=== PATIENT | male | born 1995 | race Caucasian/White ===

== ENCOUNTER 2017-09-08 00:55 | Emergency (ER) | payer OTHER, SELFPAY ==
[2017-09-08 01:02] VITALS: BP 144/90; PULSE 107; RESP 15; TEMP 36.8; O2SAT 100; BMI 33.3
--- NOTE | 2017-09-08 01:03 | ED.HA ---
HPI - Headache General Chief Complaint: Headache Stated Complaint: HAS HEADACHE, COLLAPSED Time Seen by Provider: 09/08/17 01:01 Source: patient and RN notes reviewed Mode of arrival: ambulatory Limitations: no limitations History of Present Illness HPI Narrative: Patient is a 22-year-old male who presents with sudden worsening severe headache. He was having intercourse with his when his headache got very intense. He says his feet feel funny he is very anxious is breathing fast. No focal deficits. He does have headaches but not like this. A fever chills no neck pain. MD Complaint: headache Onset (ago): minute(s) Onset description: sudden Location: frontal Relieving factors: nothing Exacerbating factors: none Related Data Home Medications Medication Instructions Recorded Confirmed No Known Home Medications 09/08/17 09/08/17 Allergies Allergy/AdvReac Type Severity Reaction Status Date / Time No Known Drug Allergies Allergy Verified 09/08/17 01:07 Review of Systems Review of Systems All systems reviewed & are unremarkable except as noted in HPI and below Constitutional Denies chills, Denies fever(s), Reports headache(s), Denies lethargy and Denies weakness Eyes Denies change in vision, Denies eye discharge, Denies irritation and Denies loss of vision ENT Ears, Nose, Mouth, and Throat: Reports headache(s) and Denies neck pain Cardiovascular Denies chest pain, Denies irregular heart rhythm, Denies lightheadedness, Denies palpitations, Denies dyspnea, Denies dyspnea on exertion and Denies orthopnea Respiratory Denies cough, Denies dyspnea, Denies dyspnea on exertion and Denies wheezing Gastrointestinal Gastrointestinal: Denies abdominal pain, Denies change in bowel habits, Denies diarrhea, Denies nausea and Denies vomiting Musculoskeletal Denies neck pain Neurologic Reports system reviewed and no additional complaints, except as docu, Reports as per HPI, Reports headache(s), Denies loss of vision and Denies weakness Endocrine Denies palpitations Allergic/Immunologic Denies wheezing Exam Const General: acute distress (In pain) HENMT Head: normocephalic and atraumatic Ears: external ears normal and TM's normal bilaterally Nose: external nose normal and No nasal discharge Face and sinus: sinuses nontender, face symmetric, no sinus tenderness and No dry mucous membranes Mouth: oral mucosae normal and moist mucous membranes Teeth and gingiva: dentition normal Throat: tonsils normal and uvula midline Neck Neck: normal visual inspection, no meningeal signs, trachea midline and No midline deformity Resp Effort & Inspection: normal respiratory effort, able to speak in complete sentences, no respiratory distress, tachypneic and no use of accessory muscles Auscultation: clear to auscultation bilaterally, no rales, no rhonchi and no wheezes Cardio Rate: regular rate Rhythm: regular rhythm Heart Sounds: no click, no gallops, no murmurs and no rubs Pulses: normal peripheral pulses GI Inspection: non-distended Palpation: soft, no hepatosplenomegaly, No guarding, No pulsatile mass and No tender Auscultation: normal bowel sounds Neuro General: alert, oriented x3, gait normal and no focal motor deficits Cranial Nerves: CN's II-XI intact bilaterally Speech: speech normal Motor: strength 5/5 throughout Sensory Exam: no sensory deficits noted MDM - Headache MDM Narrative Medical decision making narrative: The patient headache improved significantly with headache cocktail. He has no focal deficits. He feels ready and able to go home. Differential Diagnosis Differential diagnosis: Likely migraine, subarachnoid hemorrhage, headache and meningitis Course Orders Ordered: Discontinued Medications Diphenhydramine HCl (Benadryl) 25 mg IV NOW ONE Stop: 09/08/17 01:08 Last Admin: 09/08/17 01:14 Dose: 25 mg Sodium Chloride (Normal Saline 0.9%) 1,000 mls @ 1,000 mls/hr IV BOLUS ONE Stop: 09/08/17 02:06 Last Admin: 09/08/17 01:14 Dose: 1,000 mls/hr Ketorolac Tromethamine (Toradol) 30 mg IV NOW ONE Stop: 09/08/17 01:08 Last Admin: 09/08/17 01:14 Dose: 30 mg Metoclopramide HCl (Reglan) 10 mg IV NOW ONE Stop: 09/08/17 01:08 Last Admin: 09/08/17 01:14 Dose: 10 mg Reevaluation(s) Reevaluation #1: Sleeping easily arousable pain much better. Time: 02:05 Last Vital Signs Temp 98.2 F 09/08/17 01:02 Pulse 85 09/08/17 02:21 Resp 17 09/08/17 02:21 BP 112/70 09/08/17 02:21 Pulse Ox 98 09/08/17 02:21 Discharge Plan Departure Patient Disposition: Home, Self-Care Clinical Impression: Headache Discharge Date/Time: 09/08/17 02:29 Interventions: ED Discharge Assessment Last Done: 09/08/17 02:28 Instructions: Sexual Headaches: From Ecstasy to Agony Activity Restrictions/Additional Instructions: *You have been diagnosed with headache *Take medications as directed *Follow up with your primary care provider in 2-3 days *Return to ER if you should have increasing headache, persistent vomiting or any new, worsening or concerning symptoms Prescriptions: No Action No Known Home Medications RF: 0
[2017-09-08] MEDS: SODIUM CHLORIDE 0.9% 1,000 ML 1000 ML IV (01:14)
[2017-09-08] MEDS: diphenhydrAMINE 50 MG/ML VIAL 25 MG IV (01:14)
[2017-09-08] MEDS: METOCLOPRAMIDE 10 MG/2 ML INJ IV (01:14)
[2017-09-08] MEDS: KETOROLAC 60 MG/2 ML VIAL 30 MG IV (01:14)
[2017-09-08 01:28] VITALS: BP 144/90; PULSE 96; RESP 17
[2017-09-08 01:40] VITALS: BP 121/84; PULSE 81; RESP 15; O2SAT 96
[2017-09-08 02:21] VITALS: BP 112/70; PULSE 85; RESP 17; O2SAT 98
== END 2017-09-08 02:29 | disposition home or self-care (01) ==
PROVIDERS: Emergency Provider Emergency Medicine
DX: R51 Headache (principal)
CPT/HCPCS: 36591; 99283; J1200; J1885; J2765

== ENCOUNTER 2017-09-08 20:15 | Emergency (ER) | payer OTHER, SELFPAY ==
[2017-09-08 20:22] VITALS: BP 109/69; PULSE 104; RESP 18; TEMP 38.8; O2SAT 99; BMI 33.3
--- NOTE | 2017-09-08 20:24 | ED_ITS ---
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 He also states that everything is ?spinning? today, he feels like the room is spinning around him. These symptoms were first noted when he got up this a.m. He states that this dizziness is worse when he is up and moving, better at rest. He states that he also woke up feeling weak this morning, felt a little bit better after he ate breakfast, so went to work but then has felt progressively worse throughout the afternoon and was told to come here. He states that he has not been able to keep down any fluids or food this afternoon, has vomited 6 times since late afternoon. He states that he has had some ongoing sinus pressure, but no headache like he had when here earlier this morning. He states he does feel like he gets some headache only when vomiting. He states that prior to all of the symptoms he has had some cough and occasional sensation of air hunger. He denies any chest pain or wheeze. He denies any new pain or swelling in the extremities. [place] the last 5 weeks and flown twice including return home Friday. 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 He denies any urinary symptoms. He denies any diarrhea but feels like his stomach is ?rumbling?. He had a normal bowel movement yesterday Related Data Home Medications Medication Instructions Recorded Confirmed No Known Home Medications 09/08/17 09/08/17 Allergies Allergy/AdvReac Type Severity Reaction Status Date / Time No Known Drug Allergies Allergy Verified 09/08/17 01:07 Review of Systems <Mariangel Lazcano PA-C - Last Filed: 09/08/17 22:31> Review of Systems All systems reviewed & are unremarkable except as noted in HPI and below <Madelyn Lutz DO - Last Filed: 09/08/17 23:05> Constitutional Reports headache(s) (last night, see hpi) ENT Ears, Nose, Mouth, and Throat: Reports dizziness (light headed) and Reports headache(s) (last night, see hpi) Cardiovascular Denies syncope and Reports lightheadedness Comments: Gastrointestinal Gastrointestinal: Denies abdominal pain, Denies diarrhea, Reports nausea and Reports vomiting Neurologic Reports dizziness (light headed), Denies syncope and Reports headache(s) (last night, see hpi) Exam <Mariangel Lazcano PA-C - Last Filed: 09/08/17 22:31> Narrative Exam Narrative: GENERAL APPEARANCE: Patient sitting comfortably, in no distress. HEENT: PERRL, EOMI, No nystagmus,normal TMs and oropharynx, no sinus TTP NECK: Supple, no masses or lymphadenopathy LUNGS: Clear to auscultation bilaterally. HEART: Rate and rhythm regular, rapid, without murmur, normal S1 and S2, no S3 or S4. ABDOMEN: Soft, ND, + BS x 4 quadrants, mild midline tenderness without guarding or rebound EXTREMITIES: No edema or calf TTP DERM: No exanthem NEUROLOGIC: Alert and oriented, normal speech, gait and coordination. I am able to elicit vertigo with Hallpike maneuver MUSCULOSKELETAL: Full Csp AROM, mild cervical and paraspinal musculature tenderness <Madelyn Lutz DO - Last Filed: 09/08/17 23:05> Const General: cooperative and healthy appearing HENPA Head: normal to inspection and normocephalic Neck Neck: normal visual inspection, full ROM and no meningeal signs Other: easily moves neck MDM - Fever <Mariangel Lazcano PA-C - Last Filed: 09/08/17 22:31> Lab Data Result diagrams: 09/08/17 20:25 09/08/17 20:25 Lab Results 09/08/17 09/08/17 09/08/17 Range/Units 20:25 20:25 20:25 WBC 5.6 (4.5-11.0) X10^3/uL RBC 4.91 (4.5-5.9) X10^6/uL Hgb 14.8 (13.5-17.5) g/dL Hct 43.2 (41-53) % MCV 87.9 (80-100) fL MCH 30.2 (26-34) PG MCHC 34.4 (30-36) % RDW 13.4 (11.6-14.8) % Plt Count 154 (150-400) X10^3/uL Neut % (Auto) 79.4 H (50-75) % Lymph % (Auto) 6.7 L (25-40) % [place] % (Auto) 12.3 (3-14) % Eos % (Auto) 1.4 L (2-4) % Baso % (Auto) 0.2 (0-2) % Neut # (Auto) 4400 (6256-3180) /uL D-Dimer (<231) ng/mL Sodium (137-145) mmol/L Potassium (3.4-5.1) mmol/L Chloride (98-107) mmol/L Carbon Dioxide (22-32) mmol/L BUN (9-20) mg/dL Creatinine (0.66-1.25) mg/dL Estimated GFR (>60) mL/min BUN/Creatinine Ratio (6-22) Glucose (70-100) mg/dL Lactate 1.3 (0.7-2.1) mmol/L Calcium (8.4-10.2) mg/dL Total Bilirubin (0.2-1.3) mg/dL AST (17-59) IU/L ALT (21-72) IU/L Alkaline Phosphatase (38-126) U/L Total Protein (6.3-8.2) g/dL Albumin (3.5-5.0) g/dL Globulin (1.7-4.1) g/dL Albumin/Globulin Ratio (1.0-2.8) Procalcitonin < 0.05 (<0.5) ng/mL Influenza A & B (PCR) (Negative) 09/08/17 09/08/17 09/08/17 Range/Units 20:25 20:25 21:20 WBC (4.5-11.0) X10^3/uL RBC (4.5-5.9) X10^6/uL Hgb (13.5-17.5) g/dL Hct (41-53) % MCV (80-100) fL MCH (26-34) PG MCHC (30-36) % RDW (11.6-14.8) % Plt Count (150-400) X10^3/uL Neut % (Auto) (50-75) % Lymph % (Auto) (25-40) % [place] % (Auto) (3-14) % Eos % (Auto) (2-4) % Baso % (Auto) (0-2) % Neut # (Auto) (2141-1107) /uL D-Dimer < 200 (<231) ng/mL Sodium 142 (137-145) mmol/L Potassium 3.7 (3.4-5.1) mmol/L Chloride 102.0 (98-107) mmol/L Carbon Dioxide 28.0 (22-32) mmol/L BUN 12.0 (9-20) mg/dL Creatinine 1.10 (0.66-1.25) mg/dL Estimated GFR > 60.0 (>60) mL/min BUN/Creatinine Ratio 10.9 (6-22) Glucose 91 (70-100) mg/dL Lactate (0.7-2.1) mmol/L Calcium 9.8 (8.4-10.2) mg/dL Total Bilirubin 0.4 (0.2-1.3) mg/dL AST 33 (17-59) IU/L ALT 53 (21-72) IU/L Alkaline Phosphatase 60 (38-126) U/L Total Protein 7.6 (6.3-8.2) g/dL Albumin 4.6 (3.5-5.0) g/dL Globulin 3.0 (1.7-4.1) g/dL Albumin/Globulin Ratio 1.5 (1.0-2.8) Procalcitonin (<0.5) ng/mL Influenza A & B (PCR) Negative (Negative) Imaging Data Chest x-ray: Radiologist's impression: [address] [address] XRay Report Signed Patient: Shawn Pederson MR#: [id number] : 1995 Acct:[id number] Age/Sex: 22 / M Date of Service: 09/08/17 Loc: ED Accession Number: [id number] Procedure: XR chest 2V Ordering Provider: Mariangel Lazcano P.A-C PROCEDURE: XR CHEST 2V INDICATIONS: cough, shortness of breath TECHNIQUE: 2 views of the chest were acquired. COMPARISON: None. FINDINGS: Surgical changes and devices: None. Lungs and pleura: No pleural effusions or pneumothorax. Lungs are clear. Mediastinum: Mediastinal contours are normal. Heart size is normal. Bones and chest wall: No suspicious bony abnormalities. Soft tissues appear unremarkable. IMPRESSION: No acute cardiopulmonary disease process. Dictated by: Alyssa Fitch MD, PhD on 09/08/2017 at 21:23 Approved by: Alyssa Fitch MD, PhD on 09/08/2017 at 21:24 <Madelyn Lutz, DO - Last Filed: 09/08/17 23:05> [facility] Narrative Medical decision making narrative: I discussed case with Mariangel. Patient's headache resolved completely between last night and today. He has overall body aches feeling a little lightheaded but no syncopal episodes. He he vomited a few times abdominal pain did start after he vomiting. He is now tolerating oral fluids. Looks and feels better. At this time likely a viral syndrome. Do not suspect meningitis at this time. Differential Diagnosis Likely fever of unknown origin, gastroenteritis, viral infection and sepsis Lab Data Attestation: I reviewed the patient's lab results. Lab Results 09/08/17 09/08/17 09/08/17 Range/Units 20:25 20:25 20:25 WBC 5.6 (4.5-11.0) X10^3/uL RBC 4.91 (4.5-5.9) X10^6/uL Hgb 14.8 (13.5-17.5) g/dL Hct 43.2 (41-53) % MCV 87.9 (80-100) fL MCH 30.2 (26-34) PG MCHC 34.4 (30-36) % RDW 13.4 (11.6-14.8) % Plt Count 154 (150-400) X10^3/uL Neut % (Auto) 79.4 H (50-75) % Lymph % (Auto) 6.7 L (25-40) % [place]ville % (Auto) 12.3 (3-14) % Eos % (Auto) 1.4 L (2-4) % Baso % (Auto) 0.2 (0-2) % Neut # (Auto) 4400 (5412-2835) /uL D-Dimer (<231) ng/mL Sodium (137-145) mmol/L Potassium (3.4-5.1) mmol/L Chloride (98-107) mmol/L Carbon Dioxide (22-32) mmol/L BUN (9-20) mg/dL Creatinine (0.66-1.25) mg/dL Estimated GFR (>60) mL/min BUN/Creatinine Ratio (6-22) Glucose (70-100) mg/dL Lactate 1.3 (0.7-2.1) mmol/L Calcium (8.4-10.2) mg/dL Total Bilirubin (0.2-1.3) mg/dL AST (17-59) IU/L ALT (21-72) IU/L Alkaline Phosphatase (38-126) U/L Total Protein (6.3-8.2) g/dL Albumin (3.5-5.0) g/dL Globulin (1.7-4.1) g/dL Albumin/Globulin Ratio (1.0-2.8) Procalcitonin < 0.05 (<0.5) ng/mL Influenza A & B (PCR) (Negative) 09/08/17 09/08/17 09/08/17 Range/Units 20:25 20:25 21:20 WBC (4.5-11.0) X10^3/uL RBC (4.5-5.9) X10^6/uL Hgb (13.5-17.5) g/dL Hct (41-53) % MCV (80-100) fL MCH (26-34) PG MCHC (30-36) % RDW (11.6-14.8) % Plt Count (150-400) X10^3/uL Neut % (Auto) (50-75) % Lymph % (Auto) (25-40) % Granville % (Auto) (3-14) % Eos % (Auto) (2-4) % Baso % (Auto) (0-2) % Neut # (Auto) (3186-4622) /uL D-Dimer < 200 (<231) ng/mL Sodium 142 (137-145) mmol/L Potassium 3.7 (3.4-5.1) mmol/L Chloride 102.0 (98-107) mmol/L Carbon Dioxide 28.0 (22-32) mmol/L BUN 12.0 (9-20) mg/dL Creatinine 1.10 (0.66-1.25) mg/dL Estimated GFR > 60.0 (>60) mL/min BUN/Creatinine Ratio 10.9 (6-22) Glucose 91 (70-100) mg/dL Lactate (0.7-2.1) mmol/L Calcium 9.8 (8.4-10.2) mg/dL Total Bilirubin 0.4 (0.2-1.3) mg/dL AST 33 (17-59) IU/L ALT 53 (21-72) IU/L Alkaline Phosphatase 60 (38-126) U/L Total Protein 7.6 (6.3-8.2) g/dL Albumin 4.6 (3.5-5.0) g/dL Globulin 3.0 (1.7-4.1) g/dL Albumin/Globulin Ratio 1.5 (1.0-2.8) Procalcitonin (<0.5) ng/mL Influenza A & B (PCR) Negative (Negative) Course <Mariangel Lazcano PA-C - Last Filed: 09/08/17 22:31> Hospital Course: Patient reports resolution of nausea, not having pain, still feeling weak. He was tolerating oral fluid and ate some crackers prior to my departure. He has not been able to leave a urine sample yet but will do so when able. Labs and findings were reviewed. Discussed plan to send him home if he continues to improve. Rolanda shen ordered. Signed out to Dr. Lutz at 2220 Orders Ordered: ED Orders 09/08/17 20:25 Complete Blood Count AUTO DIFF Stat Comprehensive Metabolic Panel Stat D Dimer Stat Lactate (Lactic Acid) Stat Procalcitonin Stat 09/08/17 20:52 XR chest 2V Stat 09/08/17 21:20 Influenza A and B by PCR Rapid Stat 09/08/17 22:25 Blood Culture Stat Discontinued Medications Sodium Chloride (Normal Saline 0.9%) 1,000 mls @ 1,000 mls/hr IV BOLUS ONE Stop: 09/08/17 21:55 Last Infusion: 09/08/17 22:38 Dose: 0 mls/hr Admin: 09/08/17 21:05 Dose: 1,000 mls/hr Ketorolac Tromethamine (Toradol) 30 mg IV NOW ONE Stop: 09/08/17 20:53 Last Admin: 09/08/17 21:04 Dose: 30 mg Ondansetron HCl (Zofran) 4 mg IV NOW ONE Stop: 09/08/17 20:57 Last Admin: 09/08/17 21:04 Dose: 4 mg Ondansetron HCl (Zofran Odt Prepack) 1 bottle MISC SEEINSTR ONE Stop: 09/08/17 22:18 Last Vital Signs Temp 100.6 F H 09/08/17 22:03 Pulse 96 H 09/08/17 21:20 Resp 15 09/08/17 21:20 BP 99/56 L 09/08/17 21:20 Pulse Ox 98 09/08/17 21:20 <Madelyn Lutz DO - Last Filed: 09/08/17 23:05> Orders Ordered: ED Orders 09/08/17 20:25 Complete Blood Count AUTO DIFF Stat Comprehensive Metabolic Panel Stat D Dimer Stat Lactate (Lactic Acid) Stat Procalcitonin Stat 09/08/17 20:52 XR chest 2V Stat 09/08/17 21:20 Influenza A and B by PCR Rapid Stat 09/08/17 22:25 Blood Culture Stat Discontinued Medications Sodium Chloride (Normal Saline 0.9%) 1,000 mls @ 1,000 mls/hr IV BOLUS ONE Stop: 09/08/17 21:55 Last Infusion: 09/08/17 22:38 Dose: 0 mls/hr Admin: 09/08/17 21:05 Dose: 1,000 mls/hr Ketorolac Tromethamine (Toradol) 30 mg IV NOW ONE Stop: 09/08/17 20:53 Last Admin: 09/08/17 21:04 Dose: 30 mg Ondansetron HCl (Zofran) 4 mg IV NOW ONE Stop: 09/08/17 20:57 Last Admin: 09/08/17 21:04 Dose: 4 mg Ondansetron HCl (Zofran Odt Prepack) 1 bottle MISC SEEINSTR ONE Stop: 09/08/17 22:18 Last Vital Signs Temp 100.6 F H 09/08/17 22:03 Pulse 96 H 09/08/17 21:20 Resp 15 09/08/17 21:20 BP 99/56 L 09/08/17 21:20 Pulse Ox 98 09/08/17 21:20 Discharge Plan Departure Patient Disposition: Home, Self-Care Clinical Impression: Gastroenteritis, Dehydration, Vertigo Instructions: DI for Viral Gastroenteritis -- Adult, DI for Benign Paroxysmal Positional Vertigo, Gastroenteritis Diet Activity Restrictions/Additional Instructions: You should return if you have any acutely worsening symptoms. You should continue lots of clear fluids and you can try broth, and bland foods such as saltines, white rice, applesauce, bananas as tolerated. You should rest and remain off of work tomorrow and follow up with your PCP in the next day or so if your symptoms are not continuing to improve. Use OTC Ibuprofen every 8 hours or Aleve every 12 hours and add Tylenol as needed for fever. You can use the pills we gave you for nausea tonight and tomorrow if needed and you should see your PCM if you need more. Prescriptions: No Action No Known Home Medications RF: 0 Referrals: [facility] [Provider Group] Sign Out <Mariangel Lazcano PA-C - Last Filed: 09/08/17 22:31> Sign out: Patient reported nausea resolved, not having significant pain, still feeling weak. He is still receiving IV fluid and is now tolerating oral fluid and ate saltines. He has not been able to leave a urine sample but will do when able. Advised of plan to d/c home if he continues to improve. Signed out to Dr. Lutz at 2230 <Madelyn Lutz DO - Last Filed: 09/08/17 23:05> Cosign ED Attending Cosignature Attestation: I was immediately available in the department for consultation. Documentation has been reviewed. I agree with assessment and plan. Sign Out Provider Sign Out Attestation: Patient seen evaluated by myself. Please see chart for further details.
[2017-09-08 20:49] VITALS: TEMP 39.2
--- NOTE | 2017-09-08 20:52 | DI.RAD.S_ITS ---
PROCEDURE: XR CHEST 2V INDICATIONS: cough, shortness of breath TECHNIQUE: 2 views of the chest were acquired. COMPARISON: None. FINDINGS: Surgical changes and devices: None. Lungs and pleura: No pleural effusions or pneumothorax. Lungs are clear. Mediastinum: Mediastinal contours are normal. Heart size is normal. Bones and chest wall: No suspicious bony abnormalities. Soft tissues appear unremarkable. IMPRESSION: No acute cardiopulmonary disease process. Dictated by: Alyssa Fitch MD, PhD on 09/08/2017 at 21:23 Approved by: Alyssa Fitch MD, PhD on 09/08/2017 at 21:24
[2017-09-08 21:04] VITALS: TEMP 39.2
[2017-09-08 21:04] LABS: Add Manual Diff / Slide Review NO; Basophils Percent Auto 0.2 % (0-2); Eosinophils Percent Auto 1.4 % (2-4); Hematocrit 43.2 % (41-53); Hemoglobin 14.8 g/dL (13.5-17.5); Lymphocytes Percent Auto 6.7 % (25-40); Mean Corpuscular HGB Conc 34.4 % (30-36); Mean Corpuscular Hemoglobin 30.2 PG (26-34); Mean Corpuscular Volume 87.9 fL (80-100); Monocytes Percent Auto 12.3 % (3-14); Neutrophils Absolute Auto 4400 /uL (3000-5900); Neutrophils Percent Auto 79.4 % (50-75); Platelet Count 154 X10^3/uL (150-400); Red Blood Cell Count 4.91 X10^6/uL (4.5-5.9); Red Cell Distribution Width 13.4 % (11.6-14.8); White Blood Cell Count 5.6 X10^3/uL (4.5-11.0)
[2017-09-08] MEDS: KETOROLAC 60 MG/2 ML VIAL 30 MG IV (21:04)
[2017-09-08] MEDS: ONDANSETRON 4 MG/2 ML INJ IV (21:04)
[2017-09-08] MEDS: SODIUM CHLORIDE 0.9% 1,000 ML 1000 ML IV (21:05)
[2017-09-08 21:09] LABS: D Dimer < 200 ng/mL (<231)
[2017-09-08 21:20] VITALS: BP 99/56; PULSE 96; RESP 15; O2SAT 98
[2017-09-08 21:21] LABS: Lactate (Lactic Acid) 1.3 mmol/L (0.7-2.1)
[2017-09-08 21:24] LABS: Alanine Aminotransferase 53 IU/L (21-72); Albumin 4.6 g/dL (3.5-5.0); Albumin Globulin Ratio 1.5 (1.0-2.8); Alkaline Phosphatase 60 U/L (38-126); Aspartate Aminotransferase 33 IU/L (17-59); BUN Creatinine Ratio 10.9 (6-22); Bilirubin Total 0.4 mg/dL (0.2-1.3); Calcium 9.8 mg/dL (8.4-10.2); Estimated Glomerular Filt Rate > 60.0 mL/min (>60); Glucose 91 mg/dL (70-100); HEMOLYSIS 20 (0-50); Potassium 3.7 mmol/L (3.4-5.1); Sodium 142 mmol/L (137-145); Total Protein 7.6 g/dL (6.3-8.2)
[2017-09-08 21:40] LABS: Procalcitonin < 0.05 ng/mL (<0.5)
[2017-09-08 21:44] LABS: Influenza A and B by PCR Rapid Negative (Negative)
[2017-09-08 22:03] VITALS: TEMP 38.1
[2017-09-08] MEDS: ONDANSETRON 4 MG ODT PREPACK 1 BOTTLE MISC (23:05)
[2017-09-08 23:08] VITALS: BP 114/76; PULSE 77; RESP 16; TEMP 37.5; O2SAT 99
== END 2017-09-08 23:09 | disposition home or self-care (01) ==
PROVIDERS: Emergency Provider Internal Medicine
DX: K52.9 Noninfective gastroenteritis and colitis, unspecified (principal); E86.0 Dehydration; R42 Dizziness and giddiness
CPT/HCPCS: 36591; 71046; 80053; 81003; 83605; 84145; 85025; 85379; 87040; 87400; 96361; 96374; 96375; 96376; 99283; 99284; J1200; J1885; J2405; J2765

== ENCOUNTER 2020-07-29 17:12 | Emergency (ER) | payer OTHER, SELFPAY ==
[2020-07-29 17:21] VITALS: BP 155/64; PULSE 104; RESP 16; TEMP 36.8; O2SAT 97; BMI 41.2
--- NOTE | 2020-07-29 17:24 | DI.RAD.S_ITS ---
PROCEDURE: XR ANKLE RT MIN 3V INDICATIONS: sprained weeks ago with increasing pain TECHNIQUE: 3 views of the ankle were acquired. COMPARISON: None. FINDINGS: Bones: No fractures or dislocations. Ankle mortise is normally aligned. No suspicious bony lesions. Soft tissues: No tibiotalar joint effusion. Normal Achilles tendon thickness. Achilles insertional enthesopathy onto the calcaneus. IMPRESSION: No acute bony abnormality. Dictated by: Agus Arrington M.D. on 07/29/2020 at 17:02 Approved by: Agus Arrington M.D. on 07/29/2020 at 17:03
--- NOTE | 2020-07-29 18:18 | ED.LOWEXIN ---
HPI - Extremity Injury (Lower) General Chief Complaint: Extremity Injury, Lower Stated Complaint: rolled ankle 2wks ago, swollen, bruised, pain Time Seen by Provider: 07/29/20 17:54 Source: patient and family Mode of arrival: Ambulatory Limitations: no limitations History of Present Illness HPI Narrative: 25-year-old male nonsmoker with noncontributory medical history presents with his and young child a chief complaint ongoing pain and swelling in his right ankle. He states that he stood up to let the dogs out 2 weeks ago and inverted his right ankle and has felt pain with ambulation ever since. He has some little in terms of any medications and has been wearing a lace-up brace and using crutches. He states the pain is worse with motion and improves with rest. He denies any knee or hip pain. He denies any numbness, tingling or weakness. He denies any significant history of ankle injuries. MD complaint: ankle injury Onset (ago): week(s) Type of Injury: inversion Place: home Severity: moderate Relieving factors: immobilization and rest Exacerbating factors: weight bearing and movement Context: walking Associated symptoms: swelling and able to partially bear weight Other symptoms: none Treatments prior to arrival: splint Related Data Home Medications Medication Instructions Recorded Confirmed No Known Home Medications 09/08/17 09/08/17 Allergies Allergy/AdvReac Type Severity Reaction Status Date / Time No Known Drug Allergies Allergy Verified 09/08/17 01:07 Review of Systems Constitutional Constitutional: Denies chills, Denies fatigue, Denies fever(s), Denies frequent falls, Denies lethargy and Denies weakness Eyes Eyes: Denies change in vision, Denies eye discharge, Denies irritation and Denies loss of vision ENT Ears, Nose, Mouth, and Throat: Denies change in voice, Denies dizziness, Denies neck pain, Denies sore throat and Denies throat swelling Cardiovascular Cardiovascular: Denies chest pain, Denies irregular heart rhythm, Denies lightheadedness, Denies palpitations, Denies dyspnea, Denies dyspnea on exertion and Denies orthopnea Respiratory Respiratory: Denies cough, Denies dyspnea, Denies dyspnea on exertion and Denies wheezing Gastrointestinal Gastrointestinal: Denies abdominal pain, Denies change in bowel habits, Denies diarrhea, Denies nausea and Denies vomiting Musculoskeletal Musculoskeletal: Denies neck pain and Denies numbness Integumentary/Breasts Skin/Breast: Denies pruritus, Denies erythema, Denies rash and Denies wounds Neurologic Neurologic: Denies behavioral changes, Denies confusion, Denies dizziness, Denies frequent falls, Denies loss of vision, Denies numbness and Denies weakness Psychiatric Psychiatric: Denies anxiety, Denies behavioral changes, Denies confusion, Denies depression, Denies homicidal ideation and Denies suicidal ideation Endocrine Endocrine: Denies fatigue, Denies flushing and Denies palpitations Hematologic/Lymphatic Hematologic/Lymphatic: Denies easy bruising Allergic/Immunologic Allergic/Immunologic: Denies urticaria, Denies throat swelling and Denies wheezing Patient History Medical History (Updated 07/29/20 @ 18:25 by Jose Angel Hoover DO) Healthy adult male Surgical History (Updated 09/08/17 @ 21:15 by Mariangel Lazcano PA-C) [place] teeth extracted Social History (Updated 09/08/17 @ 21:14 by Mariangel Lazcano PA-C) Smoking Status: Never smoker alcohol intake: current substance use type: does not use Smoking Status: Never smoker alcohol intake frequency: holidays/special occasions only Exam Narrative Exam Narrative: GEN: AOx3 and in mild distress EYES: Pupils are equal, round, and reactive to light and accommodation. Extraoccular muscles are intact bilaterally. There is no subconjunctival hemorrhage or exudate. CHEST: Lungs are clear to auscultation bilaterally and free of wheezes, rales, or rhonchi. Heart rate is regular rhythm, there are no murmurs, clicks, rubs, or gallops. There is no chest wall tenderness. ABD: Abdomen is soft and nontender. There is no guarding or rebound. Bowel sounds are normal in all 4 quadrants. There is no mass or organomegaly. EXT: Full, but painful ROM of left ankle with minimal swelling and tenderness of lateral malleolus in distribution of ATF. No obvious deformity or ligamentous instability. SKIN: Warm, pink, and dry. No erythema or rash Initial Vital Signs Initial Vital Signs: Vital Signs Temperature 98.3 F 07/29/20 17:21 Pulse Rate 104 H 07/29/20 17:21 Respiratory Rate 16 07/29/20 17:21 Blood Pressure 155/64 H 07/29/20 17:21 Pulse Oximetry 97 07/29/20 17:21 Course Orders Ordered: ED Orders 07/29/20 17:24 XR ankle RT min 3V Stat Vital Signs Vital signs: Vital Signs - 8 hr 07/29/20 17:21 Temperature 98.3 F Pulse Rate 104 H Respiratory Rate 16 Blood Pressure 155/64 H Pulse Oximetry 97 MDM - Extremity Injury (Lower) Imaging Data Extremity x-ray #1: Radiologist's Impression: [address] [id number] ReportSigned Patient: Shawn Pederson#: [id number]: 1995Acct:[id number]/Sex: 25 / MDate of Service: 07/29/20Loc: EDAccession Number: [id number] Procedure: XR ankle RT min 3V Ordering Provider: Madelyn Lutz D.O. PROCEDURE: XR ANKLE RT MIN 3V INDICATIONS: sprained weeks ago with increasing pain TECHNIQUE: 3 views of the ankle were acquired. COMPARISON: None. FINDINGS: Bones: No fractures or dislocations. Ankle mortise is normally aligned. No suspicious bony lesions. Soft tissues: No tibiotalar joint effusion. Normal Achilles tendon thickness. Achilles insertional enthesopathy onto the calcaneus. IMPRESSION: No acute bony abnormality. Dictated by: Agus Arrington M.D. on 07/29/2020 at 17:02 Approved by: Agus Arrington M.D. on 07/29/2020 at 17:03 Discharge Plan Departure Patient Disposition: Home Clinical Impression: Ankle sprain and strain Instructions: DI for Ankle Sprain Activity Restrictions/Additional Instructions: *You have been diagnosed with [right ankle sprain and strain. Your exam is most consistent with soft tissue injury. X-ray does not show any fracture or dislocation.] *What to do: *Take medications as directed *Follow up with your primary care provider in 2-3 days, call for an appointment. Let them know you were seen in the Emergency Department and that we ask that you be seen in follow up, given your ongoing pain they will most likely refer you to either physical therapy or potentially get an outpatient MRI. *Return to ER if you should have any new, worsening or concerning symptoms Prescriptions: No Action No Known Home Medications RF: 0
[2020-07-29 18:35] VITALS: PULSE 98; RESP 16; O2SAT 97
== END 2020-07-29 18:36 | disposition home or self-care (01) ==
PROVIDERS: Emergency Provider Emergency Medicine
DX: S93.401A Sprain of unspecified ligament of right ankle, initial encounter (principal); S96.911A Strain of unspecified muscle and tendon at ankle and foot level, right foot, initial encounter; W01.0XXA Fall on same level from slipping, tripping and stumbling without subsequent striking against object, initial encounter
CPT/HCPCS: 73610; 99283

== ENCOUNTER 2020-10-14 16:53 | Emergency (ER) | payer OTHER, SELFPAY ==
[2020-10-14 17:12] VITALS: BP 123/85; PULSE 74; RESP 20; TEMP 36.9; O2SAT 99; BMI 41.8
--- NOTE | 2020-10-14 18:52 | ED_ITS ---
HPI - Recheck/Abnormal Lab/Rx General Chief Complaint: Recheck/Abnormal Lab/Rx Stated Complaint: Airline lost medication Time Seen by Provider: 10/14/20 18:49 Source: patient Mode of arrival: Family Vehicle Limitations: no limitations History of Present Illness HPI narrative: Patient is a 25-year-old male who presents with need for medication. He takes Wellbutrin and Lexapro for depression anxiety unfortunately he just got back from a trip and the airlines lost his luggage his medication is in there and he just needs a dose for 10 night. Him he should get his luggage tomorrow. He denies any thoughts of self harm. MD complaint: medication refill request Related Data Home Medications Medication Instructions Recorded Confirmed No Known Home Medications 09/08/17 09/08/17 Allergies Allergy/AdvReac Type Severity Reaction Status Date / Time No Known Drug Allergies Allergy Verified 10/14/20 17:12 Review of Systems Review of Systems Narrative: GENERAL: Denies chills, fatigue, malaise, fever, sweats, travel HEENT: Denies sinus pain, ear pain, sore throat, difficulty swallowing, neck pain RESPIRATORY: Denies dyspnea, cough, wheezing, hemoptysis, sputum. CARDIOVASCULAR: Denies chest pain, palpitations, orthopnea, edema GASTROINTESTINAL: Denies nausea, vomiting, abdominal pain, diarrhea, constipation, melena. : Denies dysuria, frequency, incontinence, hematuria, urinary retention, flank pain. MUSCULOSKELETAL: Denies weakness, joint pain, or bony pain SKIN: No rash, no erythema, no pruritus NEUROLOGIC: Denies weakness, dizziness, headache, numbness, change in speech, confusion PSYCHIATRIC: No concerning psychosocial issues. 12 point review of systems is negative except for those stated above and HPI Patient History Medical History Healthy adult male Surgical History [place] teeth extracted Social History Smoking Status: Never smoker alcohol intake: current substance use type: does not use Smoking Status: Never smoker alcohol intake frequency: holidays/special occasions only Substance Use Type: does not use Exam Initial Vital Signs Initial Vital Signs: Vital Signs Temperature 98.4 F 10/14/20 17:12 Pulse Rate 74 10/14/20 17:12 Respiratory Rate 20 10/14/20 17:12 Blood Pressure 123/85 10/14/20 17:12 Pulse Oximetry 99 10/14/20 17:12 GENERAL: Well-appearing 25-year-old male CARDIOVASCULAR: peripheral pulses in tact, cap refill <2 sec RESPIRATORY: No respiratory distress, speaks in full sentences without difficulty EXTREMITIES: Normal range of motion, no clubbing or edema. Neurovascularly intact NEUROLOGICAL: Cranial nerves II through XII grossly intact. Normal gait and speech. SKIN: Warm, dry, no petechiae, no rashes or lesions. Course Orders Ordered: Discontinued Medications Bupropion HCl (Bupropion Xl 150 Mg Tab) 300 mg PO NOW ONE Stop: 10/14/20 18:41 Last Admin: 10/14/20 19:02 Dose: 300 mg Documented by: ALESSANDRO Escitalopram Oxalate (Escitalopram 10 Mg Tablet) 10 mg PO NOW ONE Stop: 10/14/20 18:42 Last Admin: 10/14/20 19:02 Dose: 10 mg Documented by: ALESSANDRO Vital Signs Vital signs: Vital Signs - 8 hr 10/14/20 17:12 Temperature 98.4 F Pulse Rate 74 Respiratory Rate 20 Blood Pressure 123/85 Pulse Oximetry 99 Discharge Plan Departure Patient Disposition: Home Clinical Impression: Anxiety and depression Activity Restrictions/Additional Instructions: *You have been diagnosed with depression anxiety needed medication *What to do: I am sorry about your blood age. I hope you get it tomorrow *Continue to take medications as directed *Follow up with your primary care provider in 2-3 days *Return to ER if you should have any new, worsening or concerning symptoms Prescriptions: No Action No Known Home Medications RF: 0
[2020-10-14] MEDS: buPROPion XL 150 MG TAB 300 MG PO (19:02)
[2020-10-14] MEDS: ESCITALOPRAM 10 MG TABLET PO (19:02)
== END 2020-10-14 19:05 | disposition home or self-care (01) ==
PROVIDERS: Emergency Provider Emergency Medicine
DX: F41.8 Other specified anxiety disorders (principal); Z76.0 Encounter for issue of repeat prescription
CPT/HCPCS: 99283